=== PATIENT | male | born 1975 | race Two or more races ===

== ENCOUNTER 2017-01-25 17:53 | Emergency (ER) | payer OTHER ==
[~2017-01-25] VITALS: Ht 170.2 cm; Wt 99.8 kg
[2017-01-25] MEDS ORDERED: NKM (18:02)
[2017-01-25] MEDS ORDERED: Surgicel 4in x 8in TOPIC ONE (18:30)
[2017-01-25] MEDS ORDERED: Tetanus/Diptheria/Pertussis Vaccine 0.5ml Syr IM ONE (18:30)
[2017-01-25] MEDS ORDERED: IBUPROFEN600 MG ORAL (18:53)
[2017-01-25 19:07] VITALS: BP 152/87
[2017-01-25] MEDS ORDERED: CEPHALEXIN500 MG ORAL (19:11)
--- NOTE | 2017-01-25 22:25 | Emergency Room Report ---
History of Present Illness General Chief Complaint: Laceration Source: Patient Present Illness HPI The patient is a 41-year-old male presenting for left thumb laceration. This occurred at approximately 3 AM this morning . He states that he was opening up a can and felt immediate pain to the left thumb as well as bleeding. Pain is now 8/10 dull ache and does not radiate. Pain worse with touch. He is unsure of last tetanus shot. He denies any other symptoms Allergies: Coded Allergies: No Known Allergies (Unverified , 01/25/17) Patient History Past Medical History: see triage record Pertinent Family History: none Reviewed Nursing Documentation: PMH: Agreed, PSxH: Agreed Nursing Documentation-PMH Past Medical History: No Stated History Review of Systems All Other Systems: negative except mentioned in HPI Physical Exam Vital Signs Date Time Temp Pulse Resp B/P (MAP) Pulse Ox O2 Delivery O2 Flow Rate FiO2 01/25/17 17:58 98.1 78 16 162/71 97 Room Air Sp02 EP Interpretation: reviewed, normal General Appearance: no apparent distress, alert, GCS 15, non-toxic Head: normocephalic, atraumatic Eyes: bilateral eye normal inspection, bilateral eye PERRL Musculoskeletal: normal range of motion, tender - TTP over the L distal thumb Neurologic: alert, oriented x3, responsive, motor strength/tone normal, sensory intact, speech normal Psychiatric: judgement/insight normal, memory normal, mood/affect normal, no suicidal/homicidal ideation Skin: laceration - avulsion of the L distal thumb approximately 1cm in diameter. No bone visible Procedures Splinting Splinting : Consent: Verbal Location: L thumb Pre-Made Type: metal Splint: finger Pre-Proc Neuro Vasc Exam: normal Post-Proc Neuro Vasc Exam: normal Patient Tolerated: Well Complications: None Medical Decision Making PA Attestation Dr. Patterson is my supervising physician. Patient management was discussed with my supervising physician Diagnostic Impression: Primary Impression: Laceration of finger Qualified Codes: S61.112A - Laceration without foreign body of left thumb with damage to nail, initial encounter ER Course The patient is a 41-year-old male presenting for left thumb laceration. Ddx considered include but not limited to fracture, tendon/ligament injury, avulsion, nerve damage PE: The wound was irrigated with normal saline and cleaned with betadine. A 27g needle was used to administer 5mL of lidocaine w.o epi for digital block. 3 sutures were placed with 5-0 prolene. The wound was well approximated and the patient tolerated the procedure well. The wound was then cleaned and bacitracin was applied. A metal finger splint was applied The patient will continue to keep the wound clean and dry and will followup with PMD and workers compensation. Suture instructions provided. ER precautions are givenLeft distal thumb has an approximately 1 cm diameter avulsion of the dermis. Tender to palpation. Full active range of motion. Unable to repair with sutures. The area is cleaned with normal saline and Betadine. Surgicel applied and bleeding has stopped. The patient is given a tetanus shot he'll be discharged home with pain medication and Keflex. ER precautions are given. He will followup with his primary doctor and workers compensation Last Vital Signs Date Time Temp Pulse Resp B/P (MAP) Pulse Ox O2 Delivery O2 Flow Rate FiO2 01/25/17 19:07 97.9 81 16 152/87 96 Room Air Status: improved Disposition: HOME, SELF-CARE Condition: Improved Scripts Cephalexin* (KEFLEX*) 500 Mg Capsule 500 MG ORAL EVERY 12 HOURS, #14 CAP 0 Refills Prov: NOELLE LOPEZ P.A. 01/25/17 Ibuprofen* (MOTRIN*) 600 Mg Tablet 600 MG ORAL Q8H Y for For Pain, #30 TAB 0 Refills Prov: NOELLE LOPEZ P.A. 01/25/17 Referrals: NOT CHOSEN IPA/MD,REFERRING (PCP) Patient Instructions: Nonsutured Laceration Care Additional Instructions: I discussed my findings with the patient. All questions and concerns have been answered. Treatment and medication compliance have been addressed. I advised the patient that they need to follow up with primary doctor in 3 days for wound check. If you are unable to see PMD, return to the ED. Return to ED if pain remains or worsens, you notice discharge from the wound, the wound continues to bleed, you notice a fever or chills, or for any reason. Patient verbalized understanding of discharge instructions. NOELLE LOPEZ Jan 25, 2017 22:25
== END 2017-01-25 19:07 | disposition home or self-care (01) ==
LOC: EMR 18:29
DX: S61.012A Laceration without foreign body of left thumb without damage to nail, initial encounter (principal); W27.4XXA Contact with kitchen utensil, initial encounter; Y92.009 Unspecified place in unspecified non-institutional (private) residence as the place of occurrence of the external cause; Z23 Encounter for immunization
CPT/HCPCS: 90471; 90715; 99284